=== PATIENT | female | born 2000 | race Caucasian/White ===

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

== ENCOUNTER → 2021-06-02 | Outpatient (CLI) | payer OTHER ==
[2021-06-02 11:12] LABS: Basophils % (A) 0 %; Eosinophils % (A) 0 %; HCT 38.4 % (34.0-46.0); HGB 12.9 gm/dL (11.4-16.0); Lymphocytes # (A) 2.1 k/uL (1.0-4.8); Lymphocytes % (A) 17 %; MCH 30.6 pg (25.0-35.0); MCHC 33.5 g/dL (31.0-37.0); MCV 91.2 fL (80.0-100.0); Mean Platelet Volume 7.2; Monocytes # (A) 0.4 k/uL (0-1.0); Monocytes % (A) 3 %; Neutrophils # (A) 9.6 k/uL (1.3-7.7); Neutrophils % (A) 79 %; Platelet Count 413 k/uL (150-450); RBC 4.21 m/uL (3.80-5.40); RDW 12.8 % (11.5-15.5); WBC 12.2 k/uL (3.8-10.6)
== END | disposition home or self-care (01) ==
LOC: LABPAT 10:08
PROVIDERS: ATTEND Obstetrics & Gynecology
DX: Z01.812 Encounter for preprocedural laboratory examination (principal); O02.1 Missed abortion; Z3A.00 Weeks of gestation of pregnancy not specified
CPT/HCPCS: 85025

== ENCOUNTER 2021-06-05 09:06 | Day surgery (SDC) | payer OTHER ==
[2021-06-03 14:08] VITALS: BMI 31.9
[~2021-06-05 09:06] MED LIST changes: +DEXAMETHASONE SOD PHOSPHATE 4 MG/ML 1 ML VIAL IV ONE; +MIDAZOLAM 2 MG/2 ML VIAL IV PRN; +ONDANSETRON 4 MG/2 ML VIAL IVP ONE; +Pre Op ABX Message 1 EACH MISC MISCELLANE ONE; +SCOPOLAMINE 1.5MG/72HR PATCH TRANSDERM ONE
[2021-06-05 09:26] VITALS: TEMP 97.8
[2021-06-05] MEDS ORDERED: LACTATED RINGERS 1,000 ML IV ONE (09:26)
[2021-06-05 09:37] LABS: Glucose,Whole Blood 76 mg/dL (75-99)
[2021-06-05] MEDS ORDERED: fentaNYL (PF) 50 MCG/ML 2 ML AMP ONE (10:31)
[2021-06-05] MEDS ORDERED: MIDAZOLAM 2 MG/2 ML VIAL ONE (10:31)
[2021-06-05] MEDS ORDERED: PROPOFOL 10 MG/ML 20 ML VIAL IV ONE (10:31)
[2021-06-05] MEDS ORDERED: KETOROLAC 15 MG/ML 1 ML VIAL ONE (10:31)
[2021-06-05] MEDS ORDERED: LIDOCAINE 1% INJ 10MG/ML (20 ML MDV) ONE (10:31)
[2021-06-05] MEDS: HYDROmorphone 0.5 MG/0.5 ML SYRINGE IVP PRN ×2 (11:08→11:27)
--- NOTE | 2021-06-05 11:11 | P.OP ---
Date of Procedure: 06/05/21 Preoperative Diagnosis: Missed AB, A(+) blood type Postoperative Diagnosis: Same Procedure(s) Performed: Suction dilatation and curettage Anesthesia: ROSALINDA Surgeon: Svetlana Chua Estimated Blood Loss (ml): 59 IV fluids (ml): 400 Urine output (ml): 150 Pathology: other (Products of conception) Condition: stable Disposition: PACU Description of Procedure: Patient is brought to the operating suite where general anesthetic is adminis tered without difficulty. She's placed in the dorsal lithotomy position, the cervix, vagina, perineal body and lower abdomen are all prepped and draped in usual sterile fashion. Examination under anesthesia reveals a uterus that is approximate 6-8 weeks size, smooth and mobile, retroverted. Negative adnexa bilaterally. Bladder is drained for approximately 150 mL of clear yellow urine using a nonlatex Jett. Weighted speculum was placed into the vagina and the anterior lip of the cervix is grasped with a double-tooth tenaculum. Uterus sounds to a depth of 8 cm in the retroverted position. Cervix is gently and systematically dilated using Hanks dilators. A #8 curved curet is placed to the dome of the fundus and under appropriate pressures the uterus is curettaged thoroughly. A medium sharp curette is used to assure that no retained products of conception are present. All sponge needle and instrument counts are correct. Cervix is clean and dry upon completion of the procedure. Scant vaginal bleeding is noted. Patient is brought back to the recovery room in very good condition with stable vital signs including a pulse of 75, blood pressure 140/80, 98% O2 saturation. Toradol is given prior to leaving the operative suite. Patient will follow-up with me in the office in 2 weeks.
[2021-06-05 11:44] VITALS: RESP 16
[2021-06-05 12:21] VITALS: BP 123/78; PULSE 76
== END 2021-06-05 12:50 | disposition home or self-care (01) ==
LOC: OR 09:06
PROVIDERS: ATTEND Obstetrics & Gynecology
DX: O02.1 Missed abortion (principal); J45.909 Unspecified asthma, uncomplicated; Z79.899 Other long term (current) drug therapy; Z80.1 Family history of malignant neoplasm of trachea, bronchus and lung; Z80.8 Family history of malignant neoplasm of other organs or systems; Z80.0 Family history of malignant neoplasm of digestive organs; F17.290 Nicotine dependence, other tobacco product, uncomplicated; Z91.09 Other allergy status, other than to drugs and biological substances; F32.9 Major depressive disorder, single episode, unspecified; K21.9 Gastro-esophageal reflux disease without esophagitis; Z79.52 Long term (current) use of systemic steroids
CPT/HCPCS: 86900; 86901; 88305; 86850; 59820; J2250; J1100; J2405; J2001; J3010; J1885; J2704; J1170